=== PATIENT | female | born 1980 | race Caucasian/White ===

== ENCOUNTER 2017-10-03 13:08 | Inpatient (IN) | payer SELFPAY ==
[~2017-10-03] VITALS: Ht 167.6 cm; Wt 60.0 kg
[2017-10-03 15:16] LABS: HEMATOCRIT 35.6 % (36.0-46.0); HEMOGLOBIN 11.9 G/DL (11.9-15.5); INTER. NORMALIZED RATIO 1.1; MCH 28.3 PG (29.0-34.0); MCHC 33.4 G/DL (30.0-36.0); MCV 84.8 FL (83-99); PLATELET COUNT 134 K/uL (156-360); RBC DIS.WIDTH-CV 14.6 % (11.8-14.6); RBC DIS.WIDTH-SD 44.8 % (39-53); WHITE BLOOD COUNT 5.5 K/uL (4.1-10.2)
[2017-10-03 15:34] LABS: ALBUMIN 3.9 g/dL (3.2-4.8); CHLORIDE 116 mEq/L (99-109); POTASSIUM 3.8 mEq/L (3.7-5.4); SODIUM 149 mEq/L (136-147)
[2017-10-03 15:35] LABS: AMPHETAMINE NEGATIVE (500 ng/mL); BARBITURATES PRESUMPTIVE POSITIVE (200 ng/mL); COCAINE PRESUMPTIVE POSITIVE (150 ng/mL); METHADONE NEGATIVE (200 ng/mL); METHAMPHETAMINE NEGATIVE (500 ng/mL); OPIATES (MORPHINE) PRESUMPTIVE POSITIVE (100 ng/mL); OXYCODONE NEGATIVE (100 ng/mL); PHENCYCLIDINE NEGATIVE (25 ng/mL); THC CANNABINOIDS NEGATIVE (50 ng/mL)
[2017-10-03 15:36] LABS: BENZODIAZEPINES NEGATIVE (150 ng/mL); BUPRENORPHINE NEGATIVE (10 ng/mL); PROPOXYPHENE NEGATIVE (300 ng/mL); TRICYCLIC ANTIDEPRESSANTS PRESUMPTIVE POSITIVE (300 ng/mL)
[2017-10-03 15:37] LABS: TOTAL PROTEIN 7.6 g/dL (6.4-8.3)
[2017-10-03 15:38] LABS: TOTAL BILIRUBIN 0.2 mg/dL (0.0-1.0)
[2017-10-03 15:39] LABS: SERUM ETHYL ALCOHOL < 10 mg/dL
[2017-10-03 15:40] LABS: ALKALINE PHOSPHATASE 64 IU/L (3-129)
[2017-10-03 15:41] LABS: UREA NITROGEN (BUN) 18 mg/dL (9-23)
[2017-10-03 15:42] LABS: AST (GOT) 32 IU/L (2-34)
[2017-10-03 15:43] LABS: ALT (GPT) 37 IU/L (3-49)
[2017-10-03 15:44] LABS: GFR ESTIMATE (CALCULATED) > 59 mL/min/
[2017-10-03 15:50] LABS: QUANTITATIVE HCG < 4.0 MIU/ML
[2017-10-03 23:24] VITALS: BP 117/68
[2017-10-04] VITALS (20 sets, daily range): BP systolic 82–164; BP diastolic 51–139
[2017-10-04 06:14] LABS: HEMATOCRIT 35.2 % (36.0-46.0); HEMOGLOBIN 11.5 G/DL (11.9-15.5); MCH 28.3 PG (29.0-34.0); MCHC 32.7 G/DL (30.0-36.0); MCV 86.5 FL (83-99); PLATELET COUNT 161 K/uL (156-360); RBC DIS.WIDTH-SD 47.6 % (39-53); RED BLOOD COUNT 4.07 M/uL (3.80-5.20); WHITE BLOOD COUNT 5.2 K/uL (4.1-10.2)
[2017-10-04 09:49] LABS: CHLORIDE 113 MEQ/L (99-109); CREATININE 0.8 MG/DL (0.6-1.3); GFR ESTIMATE (CALCULATED) > 59 mL/min/; GLUCOSE 193 mg/dL (70-99); POTASSIUM 3.4 MEQ/L (3.7-5.4); UREA NITROGEN (BUN) 16 mg/dL (9-23)
[2017-10-04 09:50] LABS: SODIUM 141 MEQ/L (136-147)
[2017-10-04 16:28] LABS: COMMENTS - BLOOD GASES A+C+; DEVICE RA; SITE RR
[2017-10-04 16:29] LABS: BICARBONATE 20.3 mEq/L (22-26); CARBOXY HGB 1.2 % (0-5); METHEMOGLOBIN 0.9 % (0-1.5); O2 SATURATION (CALCULATED) 96.6 % (95-99); PCO2 26 mm Hg (35-45); PO2 98 mm Hg (80-100)
[2017-10-04 16:30] LABS: BASE EXCESS -1.7 mEq/L (-3 to +3)
[2017-10-04 16:50] LABS: TROP-I INTERPRETATION NEGATIVE; TROPONIN-I < 0.01 ng/mL (0.0-0.30)
[2017-10-04 19:20] LABS: BASOPHIL (%) 0.7 % (0-1); EOSINOPHIL (%) 0 % (0-5); HEMATOCRIT 33.2 % (36.0-46.0); HEMOGLOBIN 10.9 G/DL (11.9-15.5); IMMATURE GRANULOCYTE (%) 0.2 % (0.0-0.7); LYMPHOCYTE (%) 29.2 % (15-42); LYMPHOCYTE COUNT 1.2 K/uL (1.0-2.8); MCH 28.1 PG (29.0-34.0); MCHC 32.8 G/DL (30.0-36.0); MCV 85.6 FL (83-99); MONOCYTE (%) 5.4 % (3-12); MONOCYTE COUNT 0.2 K/uL (0-0.8); NEUTROPHIL (%) 64.5 % (45-76); NEUTROPHIL COUNT 2.6 K/uL (1.8-6.4); PLATELET COUNT 150 K/uL (156-360); RBC DIS.WIDTH-CV 15.2 % (11.8-14.6); RBC DIS.WIDTH-SD 47.4 % (39-53); RED BLOOD COUNT 3.88 M/uL (3.80-5.20); WHITE BLOOD COUNT 4.1 K/uL (4.1-10.2)
[2017-10-04 19:41] LABS: TROP-I INTERPRETATION NEGATIVE; TROPONIN-I 0.04 ng/mL (0.0-0.30)
[2017-10-04 19:51] LABS: ALBUMIN 3.4 G/DL (3.2-4.8); ALKALINE PHOSPHATASE 41 IU/L (3-129); ALT (GPT) 35 IU/L (3-49); AST (GOT) 33 IU/L (2-34); CHLORIDE 113 MEQ/L (99-109); CREATININE 0.6 MG/DL (0.6-1.3); GFR ESTIMATE (CALCULATED) > 59 mL/min/; HIGH-SENS C-REACTIVE PROTEIN 0.76 MG/DL (0.02-0.20); POTASSIUM 3.2 MEQ/L (3.7-5.4); SODIUM 141 MEQ/L (136-147); TOTAL BILIRUBIN 0.5 MG/DL (0.0-1.0); TOTAL PROTEIN 6.2 G/DL (6.4-8.3); UREA NITROGEN (BUN) 12 mg/dL (9-23)
[2017-10-04 19:51] LABS: CREATINE KINASE 228 IU/L (1-294); MAGNESIUM 1.9 mg/dl (1.3-2.7); PHOSPHORUS 2.9 mg/dL (2.5-4.9); TRIGLYCERIDES 140 MG/DL (Normal: <150)
[2017-10-04 19:52] LABS: GLUCOSE 94 mg/dL (70-99)
[2017-10-05] VITALS (28 sets, daily range): BP systolic 93–138; BP diastolic 48–85
[2017-10-05 05:49] LABS: BASOPHIL (%) 0.6 % (0-1); EOSINOPHIL (%) 1.2 % (0-5); EOSINOPHIL COUNT 0.1 K/uL (0-0.3); HEMATOCRIT 28.7 % (36.0-46.0); HEMOGLOBIN 9.3 G/DL (11.9-15.5); IMMATURE GRANULOCYTE (%) 0.2 % (0.0-0.7); LYMPHOCYTE (%) 34.2 % (15-42); LYMPHOCYTE COUNT 1.8 K/uL (1.0-2.8); MCH 28.4 PG (29.0-34.0); MCHC 32.4 G/DL (30.0-36.0); MCV 87.8 FL (83-99); MONOCYTE (%) 6.1 % (3-12); MONOCYTE COUNT 0.3 K/uL (0-0.8); NEUTROPHIL (%) 57.7 % (45-76); PLATELET COUNT 113 K/uL (156-360); RBC DIS.WIDTH-CV 15.5 % (11.8-14.6); RBC DIS.WIDTH-SD 49.6 % (39-53); RED BLOOD COUNT 3.27 M/uL (3.80-5.20); WHITE BLOOD COUNT 5.2 K/uL (4.1-10.2)
[2017-10-05 06:12] LABS: ALBUMIN 2.7 G/DL (3.2-4.8); ALKALINE PHOSPHATASE 34 IU/L (3-129); ALT (GPT) 28 IU/L (3-49); AST (GOT) 25 IU/L (2-34); CHLORIDE 118 MEQ/L (99-109); CREATININE 0.7 MG/DL (0.6-1.3); GFR ESTIMATE (CALCULATED) > 59 mL/min/; GLUCOSE 133 mg/dL (70-99); MAGNESIUM 1.8 mg/dl (1.3-2.7); PHOSPHORUS 1.9 mg/dL (2.5-4.9); SODIUM 144 MEQ/L (136-147); UREA NITROGEN (BUN) 8 mg/dL (9-23)
[2017-10-05 06:17] LABS: TOTAL BILIRUBIN 0.2 MG/DL (0.0-1.0); TOTAL PROTEIN 5.2 G/DL (6.4-8.3)
[2017-10-05 10:15] LABS: COMMENTS - BLOOD GASES C+A+; DEVICE 840; FI02 40 %; MECHANICAL RATE 20 resp/min; MODE AC; PEEP 5 CM/H20; SITE RR; TIDAL VOLUME 400 ML; TOTAL RESP RATE 4 resp/min; pH 7.39 (7.35-7.45)
[2017-10-05 10:16] LABS: BASE EXCESS -5.9 mEq/L (-3 to +3); BICARBONATE 18.2 mEq/L (22-26); METHEMOGLOBIN 0.8 % (0-1.5); PCO2 30 mm Hg (35-45); PO2 126 mm Hg (80-100)
[2017-10-05 10:50] LABS: HIGH-SENS C-REACTIVE PROTEIN 1.13 MG/DL (0.02-0.20)
[2017-10-06] VITALS (22 sets, daily range): BP systolic 87–144; BP diastolic 54–94
[2017-10-06 06:07] LABS: BASOPHIL (%) 0.4 % (0-1); EOSINOPHIL (%) 2.5 % (0-5); EOSINOPHIL COUNT 0.1 K/uL (0-0.3); HEMATOCRIT 27.4 % (36.0-46.0); HEMOGLOBIN 8.7 G/DL (11.9-15.5); IMMATURE GRANULOCYTE (%) 0.2 % (0.0-0.7); LYMPHOCYTE (%) 33.5 % (15-42); LYMPHOCYTE COUNT 1.6 K/uL (1.0-2.8); MCH 27.9 PG (29.0-34.0); MCHC 31.8 G/DL (30.0-36.0); MCV 87.8 FL (83-99); MONOCYTE (%) 6.5 % (3-12); MONOCYTE COUNT 0.3 K/uL (0-0.8); NEUTROPHIL (%) 56.9 % (45-76); NEUTROPHIL COUNT 2.7 K/uL (1.8-6.4); PLATELET COUNT 102 K/uL (156-360); RBC DIS.WIDTH-CV 16.2 % (11.8-14.6); RBC DIS.WIDTH-SD 51.8 % (39-53); RED BLOOD COUNT 3.12 M/uL (3.80-5.20); WHITE BLOOD COUNT 4.8 K/uL (4.1-10.2)
[2017-10-06 06:30] LABS: ALBUMIN 3.1 G/DL (3.2-4.8); ALKALINE PHOSPHATASE 35 IU/L (3-129); ALT (GPT) 29 IU/L (3-49); AST (GOT) 21 IU/L (2-34); CHLORIDE 116 MEQ/L (99-109); CREATININE 0.7 MG/DL (0.6-1.3); GFR ESTIMATE (CALCULATED) > 59 mL/min/; SODIUM 147 MEQ/L (136-147); TOTAL PROTEIN 5.5 G/DL (6.4-8.3); UREA NITROGEN (BUN) 4 mg/dL (9-23)
[2017-10-06 06:44] LABS: GLUCOSE 91 mg/dL (70-99); POTASSIUM 3.7 MEQ/L (3.7-5.4); TOTAL BILIRUBIN 0.3 MG/DL (0.0-1.0)
[2017-10-07] VITALS (10 sets, daily range): BP systolic 110–154; BP diastolic 54–82
[2017-10-07 05:51] LABS: BASOPHIL (%) 0.5 % (0-1); EOSINOPHIL (%) 3.7 % (0-5); EOSINOPHIL COUNT 0.2 K/uL (0-0.3); HEMATOCRIT 30.7 % (36.0-46.0); IMMATURE GRANULOCYTE (%) 0.3 % (0.0-0.7); LYMPHOCYTE (%) 28.9 % (15-42); LYMPHOCYTE COUNT 1.8 K/uL (1.0-2.8); MCH 28.5 PG (29.0-34.0); MCHC 32.6 G/DL (30.0-36.0); MCV 87.5 FL (83-99); MONOCYTE (%) 4.4 % (3-12); MONOCYTE COUNT 0.3 K/uL (0-0.8); NEUTROPHIL (%) 62.2 % (45-76); NEUTROPHIL COUNT 3.8 K/uL (1.8-6.4); PLATELET COUNT 103 K/uL (156-360); RBC DIS.WIDTH-CV 15.7 % (11.8-14.6); RBC DIS.WIDTH-SD 50.5 % (39-53); RED BLOOD COUNT 3.51 M/uL (3.80-5.20); WHITE BLOOD COUNT 6.2 K/uL (4.1-10.2)
[2017-10-07 06:43] LABS: ALBUMIN 3.1 G/DL (3.2-4.8); ALKALINE PHOSPHATASE 46 IU/L (3-129); ALT (GPT) 26 IU/L (3-49); AST (GOT) 23 IU/L (2-34); CHLORIDE 114 MEQ/L (99-109); CREATININE 0.6 MG/DL (0.6-1.3); GFR ESTIMATE (CALCULATED) > 59 mL/min/; GLUCOSE 107 mg/dL (70-99); MAGNESIUM 1.7 mg/dl (1.3-2.7); PHOSPHORUS 2.6 mg/dL (2.5-4.9); POTASSIUM 3.3 MEQ/L (3.7-5.4); SODIUM 146 MEQ/L (136-147); TOTAL PROTEIN 5.8 G/DL (6.4-8.3); UREA NITROGEN (BUN) 3 mg/dL (9-23)
[2017-10-07 06:47] LABS: TOTAL BILIRUBIN 0.6 MG/DL (0.0-1.0)
[2017-10-07] MEDS ORDERED: ADVIL,NUPRIN,M200 MG PO (12:44)
== END 2017-10-07 13:35 | disposition left against medical advice (07) | DRG 917 ==
LOC: EME 13:08 → EDBD 13:08 → EDOF 19:49 → 5EAST 19:49 → ENRESERV 19:57 → 5EAST 23:06 → ENRESERV 10-04 14:30 → 4WEST 10-04 16:47
PROVIDERS: Emergency Medicine; Hospitalist; Internal Medicine; Physician Assistant
DX: T40.601A Poisoning by unspecified narcotics, accidental (unintentional), initial encounter (principal); T40.5X1A Poisoning by cocaine, accidental (unintentional), initial encounter; T42.3X1A Poisoning by barbiturates, accidental (unintentional), initial encounter; G92 Toxic encephalopathy; J96.90 Respiratory failure, unspecified, unspecified whether with hypoxia or hypercapnia; J69.0 Pneumonitis due to inhalation of food and vomit; E87.1 Hypo-osmolality and hyponatremia; E86.0 Dehydration; E87.6 Hypokalemia; F11.929 Opioid use, unspecified with intoxication, unspecified; F14.929 Cocaine use, unspecified with intoxication, unspecified; F19.929 Other psychoactive substance use, unspecified with intoxication, unspecified; D69.6 Thrombocytopenia, unspecified
CPT/HCPCS: 36600; 70450; 71045; 80048; 80053; 80202; 81003; 82550; 82550 91; 83605; 83735; 84100; 84145 90; 84478; 84484; 84702; 84999; 85025; 85025 91; 85027; 85610; 86141; 87040; 87070; 87081; 87205; 87641; 94002; 94003; 94640; 94799; 99281; 99284; C1751; C1753; G0480; J1630; J1650; J1940; J2060; J2250; J2543; J2704; J3010; J3370; J3411; J3475; J7030; J7040; J7042; J7050; P9047

== ENCOUNTER 2017-10-09 03:25 | Emergency (ER) | payer SELFPAY ==
[~2017-10-09] VITALS: Ht 160 cm; Wt 58.2 kg
[~2017-10-09 03:25] MED LIST: ADVIL,NUPRIN,M200 MG PO
[2017-10-09 03:28] VITALS: BP 138/82
== END 2017-10-09 03:54 | disposition left against medical advice (07) ==
LOC: EME 03:25
DX: Z20.2 Contact with and (suspected) exposure to infections with a predominantly sexual mode of transmission (principal); Z53.21 Procedure and treatment not carried out due to patient leaving prior to being seen by health care provider

== ENCOUNTER 2017-10-09 04:20 | Emergency (ER) | payer SELFPAY ==
[~2017-10-09] VITALS: Ht 157.5 cm; Wt 58.2 kg
[2017-10-09 05:30] VITALS: BP 125/49
== END 2017-10-09 05:31 | disposition home or self-care (01) ==
LOC: EME 04:20
DX: Z20.2 Contact with and (suspected) exposure to infections with a predominantly sexual mode of transmission (principal)
CPT/HCPCS: 99281; 99284; J0696